=== PATIENT | male | born 1955 | race Caucasian/White ===

== ENCOUNTER 2017-04-24 12:23 | Emergency (ER) | payer BC ==
--- NOTE | 2017-04-24 13:34 | EDPHY ---
H & P Stated Complaint: Lac R thumb on table saw - Personal History Current Tetanus Diphtheria and Acellular Pertussis (TDAP): Unsure - Medical/Surgical History Hx Asthma: No Hx Chronic Respiratory Disease: No Hx Diabetes: No Hx Cardiac Disease: No Hx Renal Disease: No Hx Cirrhosis: No Hx Alcoholism: No Hx HIV/AIDS: No Hx Splenectomy or Spleen Trauma: No - Social History Smoking Status: Never smoked HPI/ROS: CHIEF COMPLAINT: Thumb laceration HISTORY OF PRESENT ILLNESS: This patient is a 61 year old male presenting with a laceration to his right thumb sustained while using a table saw about three hours ago. 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 He states he is able to move his thumb, but has been keeping it straight due to bleeding. The patient denies any other trauma. No recent illness, fever, vomiting, or other associated symptoms. He is not currently taking any medications. He is not anticoagulated. REVIEW OF SYSTEMS: A ten point review of systems was performed and is negative with the exception of the items mentioned in the HPI. (Rosina Navarro) - Medical/Surgical History PMH: 1. 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 Bilateral upper extremity neuropathy 4. PEG in place. 5. Dysphagia Not currently anticoagulated. Tetanus shot status unknown. (Rosina Navarro) - Social History Additional Social History: Lives in [place]. . 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 Nonsmoker. (Rosina Navarro) - Physical Exam Exam: General Appearance: Alert. Vital signs reviewed. BP 131/92 at triage. Focused physical exam was performed. Respiratory: Lungs are clear to auscultation; no wheezes, rales, or rhonchi. Cardiovascular: Regular rate and rhythm; no murmur, rub, or gallop. Gastrointestinal: Abdomen is soft and nontender. Skin: Warm and dry, no rashes on exposed skin, normal color. Extremities: 6cm irregular flap laceration from medial palmar aspect of right thumb (starting at web space) and extending vertically up over tip of thumb through entire nail. Decreased sensation over the right forearm and hand ( longstanding, no change today). Normal flexor and extensor tendon function in the right thumb. Pulse: 2+ right radial pulse. Neurological: Alert and oriented. Moving all four extremities spontaneously. Psychiatric: Normal affect. (Rosina Navarro) Constitutional: Initial Vital Signs Temperature (C) 36.5 C 04/24/17 12:31 Heart Rate 52 L 04/24/17 12:31 Respiratory Rate 18 04/24/17 12:31 Blood Pressure 131/92 H 04/24/17 12:31 O2 Sat (%) 97 04/24/17 12:31 O2 Delivery Mode Room Air Allergies/Adverse Reactions: No Known Allergies Allergy (Verified 04/24/17 12:31) Home Medications: Medication Instructions Recorded Cephalexin [Keflex] 500 mg PO TID #21 cap 04/24/17 Medical Decision Making - Diagnostics Imaging: Discussed imaging studies w/ punch molder Radiologist, I viewed and interpreted images myself Procedures: I was asked by Dr. Rosina Navarro to repair the right thumb laceration. Laceration repair. Verbal consent was obtained from the patient. The 6 cm irregular laceration on the right thumb was anesthetized using digital block using 1% lidocaine without epinephrine 0.5% bupivacaine without epinephrine. The wound was irrigated with saline, draped and explored to its base with a gloved finger. There were no deep structures involved. No tendon injury was identified. The wound was repaired with 4 0 Ethilon, 15 sutures. The wound repair was complex. The procedure was performed by myself. (Aleyda Velasquez) ED Course/Re-evaluation: 14:[address] Rosa, radiologist. Upon reimaging of thumb, noted fracture to base of proximal phalanx. Patient states that he has a prior injury to this thumb--skier's thumb--and he thinks that this could be an old fracture. Will administer one gram IV Ancef, as it is not known for sure if this is an old or a new bony injury. He will be discharged on oral antibiotics. Laceration repair by TR Walls. Written and verbal wound care instructions given. (Rosina Navarro) Differential Diagnosis: Differential diagnosis includes but is not limited to fracture, dislocation, laceration, nail injury, nail bed injury, tendon injury, vascular injury, and nerve injury. (Rosina Navarro) - Data Points Medications Given: Discontinued Medications Diphtheria/Tetanus/Acell Pertussis (Boostrix) 0.5 ml IM .ONCE ONE Stop: 04/24/17 13:45 Last Admin: 04/24/17 14:10 Dose: 0.5 ml Cefazolin Sodium/Dextrose (Ancef 1 Gm (Premix)) 50 mls @ 200 mls/hr IV EDNOW ONE PRN Reason: Protocol Stop: 04/24/17 15:46 Last Admin: 04/24/17 16:26 Dose: 50 mls Departure - Departure Disposition: Home, Routine, Self-Care Clinical Impression: Laceration of thumb with damage to nail Qualifiers: Encounter type: initial encounter Foreign body presence: without foreign body Laterality: right Qualified Code(s): S61.111A - Laceration without foreign body of right thumb with damage to nail, initial encounter Open fracture proximal phalanx finger Qualifiers: Encounter type: initial encounter Finger: thumb Fracture alignment: nondisplaced Laterality: right Qualified Code(s): S62.514B - Nondisplaced fracture of proximal phalanx of right thumb, initial encounter for open fracture Condition: Good Instructions: Finger Fracture (ED), Splint Care (ED), Finger Laceration (ED) Additional Instructions: Follow up with Dr. Mantilla--he is an orthopedic surgeon that specializes in hand injuries. Call his office on Wednesday and let him know that you have a thumb laceration with a possible new fracture (break) of the proximal phalanx. You were given antibiotics in the emergency department and will be taking antibiotic pills also. Wound Care Follow-Up: Removal of sutures in 10 days. Suture removal is complimentary in uncomplicated cases. Infection or abnormal findings would require reevaluation by the MD. In that case, you may be billed. Referrals: CONNIE CHAPMAN [Primary Care Provider] - As per Instructions Tong Mantilla MD [Medical Doctor] - 1-2 days without fail Prescriptions: Cephalexin [Keflex] 500 mg PO TID #21 cap Report Scribed for: Rosina Navarro Report Scribed by: Carmela Rivera Date of Report: 04/24/17 Time of Report: 13:38 Physician Review and Approval Statement: 04/24/17 13:33 Portions of this note were transcribed by the biomedical scientist. I, Dr. Rosina Navarro, personally performed the history, physical exam, and medical decision- making; and confirmed the accuracy of the information in the transcribed note. ( Rosina Navarro
[2017-04-24] MEDS ORDERED: TDAP ADULT 0.5 ML INJ (BOOSTRIX) IM ONE (13:44)
[2017-04-24 17:19] VITALS: TEMP 97.5
[2017-04-24 17:20] VITALS: BP 120/78; PULSE 51; RESP 16; O2SAT 97
== END 2017-04-24 17:20 | disposition home or self-care (01) ==
PROC: 0HQFXZZ Repair Right Hand Skin, External Approach (ICD-10-PCS; principal; 2017-04-24)
DX: S61.111A Laceration without foreign body of right thumb with damage to nail, initial encounter (principal); S62.514B Nondisplaced fracture of proximal phalanx of right thumb, initial encounter for open fracture; Z23 Encounter for immunization; W31.2XXA Contact with powered woodworking and forming machines, initial encounter; Y99.8 Other external cause status; Y93.89 Activity, other specified
CPT/HCPCS: 96374; J0690; L3925